=== PATIENT | male | born 1990 | race Caucasian/White ===

== ENCOUNTER 2023-07-25 00:31 | Inpatient (IN) | payer MEDICAID ==
[~2023-07-25] VITALS: Ht 175.3 cm; Wt 78.0 kg
[2023-07-25] MEDS: SODIUM CHLORIDE 0.9% 1000ML BAG (SEPSIS BOLUS) IV ONE (01:33)
[2023-07-25] MEDS: MIDAZOLAM HCL 2 MG/2 ML VIAL IV ONE ×2 (01:33→02:19)
[2023-07-25] MEDS: ONDANSETRON HCL 4MG/2ML INJ IV STA (01:34)
[2023-07-25] MEDS: MORPHINE SULFATE 4 MG/ML INJ (FOR IV/IM USE) IV ONE (01:37)
[2023-07-25 01:57] LABS: BG BASE EXCESS 0.5 mmol/L (-2.0-2.0); BG CARBOXYHEMOGLOBIN 0.4 % (0.5-1.5); BG DEOXYHEMOGLOBIN 1.1 % (0.0-5.0); BG FRACTION INSPIRED OXYGEN 28; BG METHEMOGLOBIN 0.3 % (0.0-1.5); BG OXYGEN SATURATION 98.9 % (92.0-98.5); BG OXYHEMOGLOBIN 98.2 % (94.0-97.0); BG PCO2 31.1 mmHg (35.0-45.0); BG PH 7.486 (7.350-7.450); BG PO2 162.3 mmHg (75.0-100.0); BG SAMPLE SITE RH; BG TOTAL HEMOGLOBIN 14.8 g/dL (12.0-18.0); BG VENT MODE NASAL CANNULA
[2023-07-25 02:16] LABS: HEMATOCRIT. 40.9 % (42.0-52.0); HEMOGLOBIN. 13.7 g/dL (14.0-18.0); MEAN CORPUSCULAR HEMOGLOBIN 27.9 pg (28.0-32.0); MEAN CORPUSCULAR HGB CONC 33.6 g/dL (31.0-37.0); MEAN CORPUSCULAR VOLUME 82.9 fL (80.0-94.0); MEAN PLATELET VOLUME 8.7 fl (7.4-10.4); PLATELET 197 x1000/uL (130-400); RED BLOOD CELL COUNT 4.93 mill/uL (4.7-6.1); RED CELL DISTRIBUTION WIDTH 13.9 % (11.6-14.6); WHITE BLOOD COUNT 13.7 x1000/uL (4.5-11.0)
[2023-07-25 02:26] LABS: ALANINE AMINOTRANSFERASE 22 IU/L (10-49); ALBUMIN 4.4 g/dL (3.2-4.8); ASPARTATE AMINOTRANSFERASE 20 IU/L (<34); BILIRUBIN TOTAL 1.1 mg/dL (0.1-1.0); CALCIUM 8.6 mg/dL (8.7-10.4); CARBON DIOXIDE 24 mEq/L (21-32); CHLORIDE 104 mEq/L (98-107); CREATININE 0.8 mg/dL (0.6-1.3); GLUCOSE 100 mg/dL (70-105); POTASSIUM 3.9 mEq/L (3.5-5.1); PROTEIN TOTAL 7.4 g/dL (6.0-8.3); SODIUM 134 mEq/L (136-145); UREA NITROGEN BLOOD 12 mg/dL (9-23)
[2023-07-25 02:30] LABS: DIFFERENTIAL COMMENT 1
[2023-07-25 02:33] LABS: PROTHROMBIN TIME 11.2 sec (9.6-11.0)
[2023-07-25 02:50] LABS: TROPONIN I HIGH SENSITIVITY < 4 ng/L (3.0-53)
[2023-07-25] MEDS: KETAMINE HCL 50 MG/ML 10ML IM ONE (03:31)
[2023-07-25] MEDS: VANCOMYCIN 1G PREMIX 200 ML IV NR (04:17)
[2023-07-25] MEDS: PIPERACILLIN/TAZO 3.375G/50ML 50 ML IV NR (04:17)
[2023-07-25] MEDS ORDERED: DIPHENHYDRAMINE 50MG/ML VIAL IV PRN (04:45)
[2023-07-25] MEDS ORDERED: ONDANSETRON HCL 4MG/2ML INJ IV PRN (04:45)
[2023-07-25] MEDS ORDERED: CLONIDINE 0.1MG TABLET PO PRN (04:45)
[2023-07-25] MEDS ORDERED: ACETAMINOPHEN 325MG TABLET PO PRN ×2 (04:45)
[2023-07-25] MEDS ORDERED: MAGNESIUM/ALUMINUM HYDROXIDE/SIMETHICONE 30ML UDC PO PRN (04:45)
[2023-07-25] MEDS: LORAZEPAM 2MG/ML INJ IV PRN (05:54)
[2023-07-25] MEDS: MVI, ADULT NO.1 10 ML, FOLIC ACID 1 MG, THIAMINE HCL 100 MG in SODIUM CHLORIDE 0.9% 1,0... IV NR (05:55)
[2023-07-25] MEDS: CHLORDIAZEPOXIDE 25MG CAPSULE PO SCH ×2 (06:00→15:42)
[2023-07-25 08:24] LABS: PLATELET ESTIMATE NORMAL
[2023-07-25 11:10] LABS: TROPONIN I HIGH SENSITIVITY < 4 ng/L (3.0-53)
[2023-07-25] MEDS: DEXT 5%/0.45% NACL 1000ML 1,000 ML IV SCH ×2 (13:00→15:07)
[2023-07-25] MEDS: METRONIDAZOLE 500 MG PREMIX 100 ML IV SCH (15:18)
[2023-07-25] MEDS: CEFTRIAXONE 1GM/50ML 50 ML IV SCH (16:01)
[2023-07-25 16:15] LABS: CLARITY URINE CLEAR (CLEAR); COLOR URINE YELLOW (YELLOW); GLUCOSE URINE NEGATIVE (NEGATIVE); KETONES URINE NEGATIVE (NEGATIVE); LEUKOCYTE ESTERASE URINE NEGATIVE (NEGATIVE); NITRITE URINE NEGATIVE (NEGATIVE); OCCULT BLOOD URINE NEGATIVE (NEGATIVE); PROTEIN URINE NEGATIVE (NEGATIVE); SPECIFIC GRAVITY URINE 1.035 (1.005-1.030); UROBILINOGEN URINE 0.2 E.U./dL (0.2-1.0)
[2023-07-25 16:26] LABS: AMMONIA 24 uMol/L (<32)
[2023-07-25 16:37] LABS: *AMPHETAMINES SCREEN URINE PRESUMPTIVE POSITIVE (NEGATIVE); *BARBITURATES SCREEN URINE NEGATIVE (NEGATIVE); *BENZODIAZEPINES SCREEN URINE PRESUMPTIVE POSITIVE (NEGATIVE); *COCAINE SCREEN URINE NEGATIVE (NEGATIVE); CANNABINOID URINE SCREEN NEGATIVE (NEGATIVE); ECSTASY MDMA SCREEN URINE NEGATIVE (NEGATIVE); METHADONE URINE SCREEN Neg (NEGATIVE); OPIATES URINE SCREEN PRESUMPTIVE POSITIVE (NEGATIVE); PHENCYCLIDINE URINE SCREEN NEGATIVE (NEGATIVE)
[2023-07-26] MEDS: METRONIDAZOLE 500 MG PREMIX 100 ML IV SCH (03:33)
[2023-07-26 07:13] LABS: BASOPHILS % 0.1 % (0.0-2.0); EOSINOPHILS % 0.2 % (0.0-5.0); HEMATOCRIT. 36.8 % (42.0-52.0); HEMOGLOBIN. 12.1 g/dL (14.0-18.0); LYMPHOCYTES % 8.6 % (20.0-50.0); MEAN CORPUSCULAR HEMOGLOBIN 27.7 pg (28.0-32.0); MEAN CORPUSCULAR VOLUME 83.8 fL (80.0-94.0); MEAN PLATELET VOLUME 9.4 fl (7.4-10.4); MONOCYTES % 5.7 % (2.0-8.0); NEUTROPHILS % 85.4 % (40.0-76.0); PLATELET 191 x1000/uL (130-400); RED BLOOD CELL COUNT 4.38 mill/uL (4.7-6.1); RED CELL DISTRIBUTION WIDTH 14.5 % (11.6-14.6); WHITE BLOOD COUNT 12.9 x1000/uL (4.5-11.0)
[2023-07-26 08:00] VITALS: BP 96/56; PULSE 114; RESP 20; TEMP 98.8
[2023-07-26 10:36] LABS: ALANINE AMINOTRANSFERASE 14 IU/L (10-49); ALBUMIN 3.3 g/dL (3.2-4.8); ASPARTATE AMINOTRANSFERASE 18 IU/L (<34); BILIRUBIN TOTAL 1.4 mg/dL (0.1-1.0); CARBON DIOXIDE 24 mEq/L (21-32); CHLORIDE 104 mEq/L (98-107); CREATININE 0.7 mg/dL (0.6-1.3); GLUCOSE 87 mg/dL (70-105); PHOSPHORUS 2.3 mg/dL (2.5-4.9); SODIUM 135 mEq/L (136-145); UREA NITROGEN BLOOD 10 mg/dL (9-23)
[2023-07-26 10:44] LABS: PROTEIN TOTAL 5.4 g/dL (6.0-8.3)
[2023-07-26 12:00] VITALS: BP 108/62; PULSE 104; RESP 18; TEMP 98.2
[2023-07-26 16:00] VITALS: BP 111/69; PULSE 112; RESP 18; TEMP 97.6
[2023-07-26] MEDS: MAGNESIUM 2 G PREMIX 50 ML IV NR (18:16)
[2023-07-26 20:00] VITALS: BP 108/66; PULSE 106; RESP 18; TEMP 97.5
[2023-07-26] MEDS: CEFTRIAXONE 1GM/50ML 50 ML IV SCH (20:30)
[2023-07-27 08:00] VITALS: BP 114/71; PULSE 91; RESP 17; TEMP 97.9
[2023-07-27 12:00] VITALS: BP 96/56; PULSE 53; RESP 22; TEMP 97.5
[2023-07-27 14:44] VITALS: BP 96/93; PULSE 53; TEMP 97.5; O2SAT 100
== END 2023-07-27 17:00 | disposition home or self-care (01) | DRG 52 ==
LOC: EDBD 00:31 → ER 00:31 → 7EST 03:37 → EDBEDREQ 03:45 → EDBEDREQTM 03:45
PROVIDERS: ADMIT Internal Medicine; ATTEND Internal Medicine
DX: G92.8 Other toxic encephalopathy (principal); J96.01 Acute respiratory failure with hypoxia; J69.0 Pneumonitis due to inhalation of food and vomit; K76.6 Portal hypertension; I11.0 Hypertensive heart disease with heart failure; R16.0 Hepatomegaly, not elsewhere classified; I50.9 Heart failure, unspecified; K74.60 Unspecified cirrhosis of liver; F41.9 Anxiety disorder, unspecified; F15.90 Other stimulant use, unspecified, uncomplicated; E11.9 Type 2 diabetes mellitus without complications
CPT/HCPCS: 36415; 36600; 71045; 71275; 74176; 80053; 80305; 81003; 82140; 82375; 82805; 83605; 83735; 83880; 84100; 84484; 85025; 85651; 93306; 97161; 97166; 99291; J0696; J2060; J2250; J2270; J2405; J2543; J3370; J3411; J3475; J3490; J7030